=== PATIENT | male | born 1945 | race Caucasian/White ===

== ENCOUNTER → 2017-09-22 | Outpatient (CLI) | payer OTHER ==
--- NOTE | 2017-09-22 14:47 | US ---
EXAMINATION TYPE: US kidneys/renal and bladder DATE OF EXAM: 09/22/2017 COMPARISON: NONE CLINICAL HISTORY: R94.4 Abn kidney function,. abn labs, no complaints of pain EXAM MEASUREMENTS: Right Kidney: 11.2 x 5.4 x 6.2 cm Left Kidney: 12.2 x 5.8 x 5.0 cm Right Kidney: wnl Left Kidney: seen with an exophytic 5.1 x 2.3 x 2.9cm cyst at the lateral pole Bladder: wnl There is no evidence for hydronephrosis at this point in time. No nephrolithiasis is seen. No michi s are identified. The urinary bladder is anechoic. Bilateral ureteral jets are seen. IMPRESSION: Simple appearing cyst left kidney. No solid renal lesions identified.
--- NOTE | 2017-09-22 14:48 | US ---
EXAMINATION TYPE: US carotid duplex BILAT DATE OF EXAM: 09/22/2017 COMPARISON: NONE CLINICAL HISTORY: I65.29 Occlusion,Stenosis. pt had rt endartectomy EXAM MEASUREMENTS: RIGHT: Peak Systolic Velocity (PSV) cm/sec ----- Right CCA: 76.4 ----- Right ICA: 80.9 ----- Right ECA: 97.4 ICA/CCA ratio: 1.1 RIGHT: End Diastole cm/sec ----- Right CCA: 19.7 ----- Right ICA: 27.0 ----- Right ECA: 16.0 LEFT: Peak Systolic Velocity (PSV) cm/sec ----- Left CCA: 68.6 ----- Left ICA: 103.0 ----- Left ECA: 94.0 ICA/CCA ratio: 1.5 LEFT: End Diastole cm/sec ----- Left CCA: 15.7 ----- Left ICA: 38.3 ----- Left ECA: 15.0 VERTEBRALS (direction of flow): Right Vertebral: diminished, antegrade Left Vertebral: diminished, antegrade Rhythm: some arrhythmia noted 1. Left stent seen. 2. Bilateral changes. 3. No elevated velocities in either vessels. 4. No significant stenosis. IMPRESSION: No hemodynamically significant stenosis identified. Criteria for Assigning % of Stenosis / Diameter reduction (Estimation based on the indirect measurements of the internal carotid artery velocities (ICA PSV). 1. Normal (no stenosis)=ICA PSV < 125 cm/s: ratio < 2.0: ICA EDV<40 cm/s. 2. Less than 50% stenosis=ICA PSV < 125 cm/s: ratio < 2.0: ICA EDV<40 cm/s. 3. 50 to 69% stenosis=ICA PSV of 125 to 230 cm/s: ration 2.0 ? 4.0: ICA EDV 40-100 cm/s. 4. Greater than 70% stenosis to near occlusion= ICA PSV > 230 cm/s: ratio > 4.0: ICA EDV > 100 cm/s. 5. Near occlusion= ICA PSV velocities may be low or undetectable: variable ratio and ICA EDV. 6. Total occlusion=unable to detect flow.
== END | disposition home or self-care (01) ==
LOC: RADUSWWP 13:58
DX: N28.1 Cyst of kidney, acquired (principal); I65.29 Occlusion and stenosis of unspecified carotid artery
CPT/HCPCS: 76770; 93880